=== PATIENT | male | born 1985 | race Caucasian/White ===

== ENCOUNTER 2022-01-30 16:43 | Emergency (ER) | payer SELFPAY ==
[~2022-01-30] VITALS: Ht 172 cm; Wt 77.0 kg
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
[2022-01-30] MEDS ORDERED: LACTATED RINGERS 1,000 ML IV SCH ×2 (17:00→18:15)
[2022-01-30 17:08] LABS: BASOPHILS % (AUTO) 0 % (0-10); EOSINOPHILS # (AUTO) 0.3 10^3/uL (0.0-0.3); EOSINOPHILS % (AUTO) 2 % (0-10); HEMATOCRIT 45 % (40-54); HEMOGLOBIN 15.6 g/dL (13.3-17.7); LYMPHOCYTES # (AUTO) 2.5 10^3/uL (1.0-4.0); LYMPHOCYTES % (AUTO) 15 % (12-44); MEAN CORPUSCULAR HEMOGLOBIN 31 pg (25-34); MEAN CORPUSCULAR HGB CONC 35 g/dL (32-36); MEAN CORPUSCULAR VOLUME 90 fL (80-99); MEAN PLATELET VOLUME 9.5 fL (9.0-12.2); MONOCYTES # (AUTO) 1.3 10^3/uL (0.0-1.0); MONOCYTES % (AUTO) 8 % (0-12); NEUTROPHILS # (AUTO) 12.4 10^3/uL (1.8-7.8); NEUTROPHILS % (AUTO) 75 % (42-75); PLATELET COUNT 276 10^3/uL (130-400); WHITE BLOOD COUNT 16.5 10^3/uL (4.3-11.0)
[2022-01-30] MEDS ORDERED: NS 100 ML (IVPB) BAG IV ONE (17:15)
[2022-01-30] MEDS ORDERED: HOLD METFORMIN - RECEIVED CONTRAST 20 ML VIAL IV SCH (17:15)
[2022-01-30] MEDS ORDERED: IOHEXOL 350 MG/ML 100 ML (OMNIPAQUE 350) VIAL IV ONE (17:15)
[2022-01-30 17:20] LABS: ALBUMIN 4.9 GM/DL (3.2-4.5)
[2022-01-30 17:21] LABS: CHLORIDE 102 MMOL/L (98-107); POTASSIUM 3.9 MMOL/L (3.6-5.0); SODIUM 139 MMOL/L (135-145)
[2022-01-30 17:22] LABS: CALCIUM 9.5 MG/DL (8.5-10.1)
[2022-01-30 17:23] LABS: GLUCOSE 109 MG/DL (70-105); TOTAL PROTEIN 7.8 GM/DL (6.4-8.2)
[2022-01-30 17:24] LABS: CARBON DIOXIDE 24 MMOL/L (21-32)
[2022-01-30 17:25] LABS: BILIRUBIN,TOTAL 0.7 MG/DL (0.1-1.0)
[2022-01-30 17:26] LABS: ALKALINE PHOSPHATASE 69 U/L (40-136)
[2022-01-30 17:27] LABS: CREATININE SERUM 1.02 MG/DL (0.60-1.30); GFR ESTIMATED 99
[2022-01-30 17:28] LABS: BUN/CREATININE RATIO 16
[2022-01-30 17:30] LABS: ALANINE AMINOTRANSFERASE 21 U/L (0-55)
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
[2022-01-30 17:52] LABS: EOSINOPHILS % (MANUAL) 3 %; LYMPHOCYTES % (MANUAL) 14 %; MONOCYTES % (MANUAL) 10 %; NEUTROPHILS % (MANUAL) 73 %; RBC MORPH NORMAL
[2022-01-30 18:05] LABS: BILIRUBIN,URINE NEGATIVE (NEGATIVE); CLARITY,URINE SL CLOUDY; COLOR,URINE YELLOW; GLUCOSE, URINE (UA) NEGATIVE (NEGATIVE); KETONES,URINE NEGATIVE (NEGATIVE); LEUKOCYTE ESTERASE ,URINE NEGATIVE (NEGATIVE); NITRITE,URINE NEGATIVE (NEGATIVE); PH,URINE 5.5 (5-9); PROTEIN,URINE NEGATIVE (NEGATIVE)
[2022-01-30 18:25] LABS: BACTERIA,URINE NEGATIVE /HPF; RBC,URINE 25-50 /HPF
[2022-01-30] MEDS ORDERED: ACHD5005 PO (18:46)
[2022-01-30 18:52] VITALS: BP 136/92
== END 2022-01-30 18:52 | disposition home or self-care (01) ==
LOC: ER 16:45
DX: S22.32XA Fracture of one rib, left side, initial encounter for closed fracture (principal); Z28.310 Unvaccinated for COVID-19; V18.4XXA Pedal cycle driver injured in noncollision transport accident in traffic accident, initial encounter; Y93.55 Activity, bike riding; Y92.828 Other wilderness area as the place of occurrence of the external cause
CPT/HCPCS: 36415; 71101; 74177; 80053; 81000; 82550; 83874; 85007; 85027